=== PATIENT | male | born 1955 | race African-American/Black ===

== ENCOUNTER 2017-02-28 12:01 | Inpatient (IN) | payer OTHER ==
[2017-02-28 15:13] VITALS: BMI 20.1
--- NOTE | 2017-02-28 17:21 | HP ---
COWS - Scale Resting Pulse: 0= [place] 80 or Below Sweatin=Flushed/Facial Moisture Restless Observation: 1= Difficult to Sit Still Pupil Size: 1= Pupils >than Normal Bone or Joint Aches: 2= Severe Diffuse Aches Runny Nose/ Eye Tearin= Runny Nose/Eyes GI Upset > 30mins: 2= Nausea/Diarrhea Tremor Observation: 1= Tremor Tamiment, Not Seen Yawning Observation: 0= None Anxiety or Irritability: 2=Irritable/Anxious Goose Flesh Skin: 0=Smooth Skin COWS Score: 13 Admission ROS BHS - HPI Chief Complaint: I need to stop using heroin and I need help to do so . Allergies/Adverse Reactions: Allergies Allergy/AdvReac Type Severity Reaction Status Date / Time No Known Allergies Allergy Verified 02/28/17 16:55 History of Present Illness: 62 y/o m pt with a h/o heroin dep. seeking detox. Exam Limitations: No Limitations - Ebola screening Have you traveled outside of the country in the last 21 days: No Have you had contact with anyone from an Ebola affected area: No Have you been sick,other than usual withdrawal symptoms: No Do you have a fever: No - Review of Systems Constitutional: Malaise, Changes in sleep EENT: reports: Blurred Vision, Nose Congestion Respiratory: reports: No Symptoms reported Cardiac: reports: No Symptoms Reported GI: reports: Diarrhea, Nausea, Vomiting : reports: No Symptoms Reported Musculoskeletal: reports: Muscle Pain, Other (cramps -legs) Integumentary: reports: No Symptoms Reported Neuro: reports: No Symptoms reported Endocrine: reports: No Symptoms Reported Hematology: reports: No Symptoms Reported Psychiatric: reports: No Sypmtoms Reported Other Systems: Reviewed and Negative Patient History - Patient Medical History Hx Anemia: No Hx Asthma: No Hx Chronic Obstructive Pulmonary Disease (COPD): No Hx Cancer: No Hx Cardiac Disorders: No Hx Congestive Heart Failure: No Hx Hypertension: No Hx Hypercholesterolemia: No Hx Pacemaker: No HX Cerebrovascular Accident: No Hx Seizures: No Hx Dementia: No Hx Diabetes: No Hx Gastrointestinal Disorders: No Hx Genitourinary Disorders: No Hx Sexually Transmitted Disorders: No Hx Renal Disease (ESRD): No Hx Thyroid Disease: No Hx Human Immunodeficiency Virus (HIV): No Hx Hepatitis C: No Hx Depression: No Hx Suicide Attempt: No Hx Bipolar Disorder: No Hx Schizophrenia: No - Patient Surgical History Past Surgical History: No Hx Neurologic Surgery: No Hx Cataract Extraction: No Hx Cardiac Surgery: No Hx Lung Surgery: No Hx Breast Surgery: No Hx Breast Biopsy: No Hx Abdominal Surgery: No Hx Appendectomy: No Hx Cholecystectomy: No Hx Genitourinary Surgery: No Hx Orthopedic Surgery: No - PPD History Previous Implant?: Yes Documented Results: Negative w/proof Date: 07/29/16 - Reproductive History Patient is a Female of Child Bearing Age (11 -55 yrs old): No - Smoking Cessation Smoking history: Current every day smoker Have you smoked in the past 12 months: Yes Aproximately how many cigarettes per day: 12 Cigars Per Day: 0 Hx Chewing Tobacco Use: No Initiated information on smoking cessation: Yes 'Breaking Loose' booklet given: 02/28/17 - Substance & Tx. History Hx Alcohol Use: No Hx Substance Use: Yes Substance Use Type: Heroin Hx Substance Use Treatment: Yes ([facility] ) - Substances Abused Heroin Route: Injection Frequency: Daily Amount used: 10 BAGS Age of first use: 18 Date of Last Use: 02/28/17 Family Disease History - Family Disease History Family Disease History: Heart Disease: Mother (), Other: Father ( ) Admission Physical Exam BHS - Vital Signs Vital Signs: Vital Signs - 24 hr 02/28/17 15:11 Temperature 97.2 F L Pulse Rate 67 Respiratory 18 Rate Blood Pressure 150/105 62 y/o tall thin m pt aox3 in nad ambulating cooperating with exam. - Physical General Appearance: Yes: No Apparent Distress, Appropriately Dressed, Thin, Anxious HEENTM: Yes: EOMI, Hearing grossly Normal, Normocephalic, Normal Voice, KATHERINE, Other (upper and lower dentures in palce) Respiratory: Yes: Chest Non-Tender, Lungs Clear, Normal Breath Sounds, No Respiratory Distress Neck: Yes: Supple, Trachea in good position Breast: Yes: Within Normal Limits Cardiology: Yes: Regular Rhythm, Regular Rate, S1, S2 Abdominal: Yes: Non Tender, Flat, Soft, Increased Bowel Sounds, Hernia (supra umbilical hernia nontender) Genitourinary: Yes: Within Normal Limits Back: Yes: Decreased Range of Motion Musculoskeletal: Yes: Back pain, Muscle Pain Extremities: Yes: Within Normal Limits 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, Fully Oriented, Alert, Motor Strength 5/5, Normal Response Integumentary: Yes: Moist, Track [place] (left arm) Lymphatic: Yes: Within Normal Limits - Diagnostic (1) Nicotine dependence Current Visit: Yes Status: Chronic Qualifiers: Nicotine product type: cigarettes Substance use status: uncomplicated Qualified Code(s): F17.210 - Nicotine dependence, cigarettes, uncomplicated (2) Uncomplicated opioid abuse with intoxication Current Visit: Yes Status: Chronic (3) Weight loss Current Visit: Yes Status: Chronic (4) Umbilical hernia Current Visit: Yes Status: Chronic Qualifiers: Obstruction and gangrene presence: with obstruction but without gangrene Qualified Code(s): K42.0 - Umbilical hernia with obstruction, without gangrene Cleared for Admission BHS - Detox or Rehab [facility] Level of Care: Medically Managed Detox Regimen/Protocol: Methadone [facility] Breath Alcohol Content Breath Alcohol Content: 0 Urine Drug Screen - Results Drug Screen Negative: No Urine Drug Screen Results: OPI-Opiates
[2017-02-28] MEDS ORDERED: MAG HYDROX/AL HYDROX/SIMETH 30 ML UNIT-DOSE CUP PO PRN (17:40)
[2017-02-28] MEDS ORDERED: LOPERAMIDE HCL 2 MG CAPSULE PO PRN (17:40)
[2017-02-28] MEDS ORDERED: hydrOXYzine PAMOATE 25 MG CAPSULE (FP) PO PRN (17:40)
[2017-02-28] MEDS ORDERED: NICOTINE POLACRILEX 4 MG GUM BC PRN (17:40)
[2017-02-28] MEDS ORDERED: guaiFENesin/D-METHORPHAN HB 10 ML UNIT-DOSE CUPS PO PRN (17:40)
[2017-02-28] MEDS ORDERED: P-EPHED 60MG/TRIPROLIDI 2.5MG TABLET PO PRN (17:40)
[2017-02-28] MEDS ORDERED: ACETAMINOPHEN 325 MG TABLET (FP) PO PRN (17:40)
[2017-02-28] MEDS ORDERED: MAGNESIUM HYDROX 2400MG/30ML ORAL SUSPENSION 30 ML CUP PO PRN (17:40)
[2017-02-28] MEDS ORDERED: MAGNESIUM CITRATE 300 ML BOTTLE PO PRN (17:40)
[2017-02-28] MEDS ORDERED: MENTHOL/PHENOL 1 EACH UD MM PRN (17:40)
[2017-02-28] MEDS ORDERED: IBUPROFEN 400 MG TABLET (FP) PO PRN (17:40)
[2017-02-28] MEDS ORDERED: METHADONE HCL 10 MG TABLET (FOR DETOX USE ONLY) PO ONE ×2 (18:15→23:00)
[2017-02-28] MEDS: diazePAM 5 MG TABLET PO PRN (18:51)
[2017-02-28] MEDS ORDERED: cloNIDine HCL 0.1 MG TABLET PO PRN (21:34)
[2017-02-28] MEDS: THIAMINE HCL 100 MG TABLET (FP) PO SCH (22:48)
[2017-02-28] MEDS: diphenhydrAMINE HCL 50 MG CAPSULE PO PRN (22:49)
--- NOTE | 2017-03-01 09:24 | EKG ---
Test Reason : Blood Pressure : / mmHG Vent. Rate : 062 BPM Atrial Rate : 062 BPM P-R Int : 146 ms QRS Dur : 090 ms QT Int : 428 ms P-R-T Axes : 064 045 042 degrees QTc Int : 434 ms NORMAL SINUS RHYTHM VOLTAGE CRITERIA FOR LEFT VENTRICULAR HYPERTROPHY CANNOT RULE OUT SEPTAL INFARCT , AGE UNDETERMINED ABNORMAL ECG NO PREVIOUS ECGS AVAILABLE Confirmed by GHAZALA AUGUSTIN MD ([id number]) on 03/01/2017 9:23:31 AM Referred By: Confirmed By:GHAZALA AUGUSTIN MD
[2017-03-01] MEDS ORDERED: METHADONE HCL 10 MG TABLET (FOR DETOX USE ONLY) PO ONE (10:00)
[2017-03-01 10:14] LABS: URINE APPEARANCE CLEAR; URINE BILIRUBIN NEGATIVE (NEGATIVE); URINE BLOOD NEGATIVE (NEGATIVE); URINE COLOR DKYELLOW; URINE GLUCOSE (UA) NEGATIVE (NEGATIVE); URINE KETONE NEGATIVE (NEGATIVE); URINE LEUK ESTERASE NEGATIVE (NEGATIVE); URINE NITRITE NEGATIVE (NEGATIVE); URINE PROTEIN NEGATIVE (NEGATIVE); URINE UROBILINOGEN 2.0 E.U/dl E.U./dl (0.2-1.0)
[2017-03-01 10:27] LABS: MCH 22.9 pg (25.7-33.7); MCHC 31.7 g/dl (32.0-35.9); MEAN CELL VOLUME 72.2 fl (80-96); MEAN PLT VOLUME 11.2 fl (7.5-11.1); PLATELET COUNT 183 K/MM3 (134-434); WHITE BLOOD COUNT 5.6 K/mm3 (4.0-10.0)
[2017-03-01] MEDS: PRENATAL VITAMINS W/ FOLIC ACID TABLET (FP) PO SCH (10:38)
[2017-03-01] MEDS: diazePAM 5 MG TABLET PO PRN (10:39)
[2017-03-01] MEDS: NICOTINE 21 MG/24 HOURS TOPICAL PATCH TD SCH (10:40)
[2017-03-01 12:21] LABS: ALBUMIN 3.5 g/dl (3.4-5.0); ALK PHOS 80 U/L (45-117); ANION GAP 9 (8-16); BILIRUBIN,TOTAL 0.4 mg/dL (0.2-1.0); CO2 31 mmol/L (21-32); GLUCOSE,RANDOM 82 mg/dL (74-106); SGOT/AST 26 U/L (15-37); SGPT/ALT 16 U/L (12-78); TOT PROT 7.9 g/dl (6.4-8.2)
--- NOTE | 2017-03-01 12:43 | PN ---
BHS COWS - Scale Resting Pulse: 0= [place] 80 or Below Sweatin=Flushed/Facial Moisture Restless Observation: 1= Difficult to Sit Still Pupil Size: 0= Normal to Room Light Bone or Joint Aches: 1= Mild Discomfort Runny Nose/ Eye Tearin= Nasal Congestion GI Upset > 30mins: 2= Nausea/Diarrhea Tremor Observation of Outstretched Hands: 2= Slight Tremor Visible Yawning Observation: 1= 1-2x During Session Anxiety or Irritability: 2=Irritable/Anxious Goose Flesh Skin: 0=Smooth Skin COWS Score: 12 BHS Progress Note (SOAP) Subjective: Sweating,interrupted sleep,restless.tremors,anxiety,muscle aches. Objective: 03/01/17 12:42 Vital Signs - 8 hr 03/01/17 03/01/17 07:52 10:10 Temperature 98.8 F Pulse Rate 57 L 78 Respiratory 18 Rate Blood Pressure 143/88 135/96 Laboratory Tests 02/28/17 03/01/17 03/01/17 08:00 06:00 06:00 WBC 5.6 D RBC 4.82 Hgb 11.0 L Hct 34.8 L MCV 72.2 L MCHC 31.7 L RDW 15.0 Plt Count 183 MPV 11.2 H D Sodium 140 Potassium 4.1 Chloride 100 Carbon Dioxide 31 Anion Gap 9 BUN 10 Creatinine 1.0 D Creat Clearance w eGFR > 60 Random Glucose 82 D Calcium 9.0 Total Bilirubin 0.4 D AST 26 ALT 16 D Alkaline Phosphatase 80 Total Protein 7.9 Albumin 3.5 Urine Color Dkyellow Urine Appearance Clear Urine pH 5.0 D Urine Protein Negative Urine Glucose (UA) Negative Urine Ketones Negative Urine Blood Negative Urine Nitrite Negative Urine Bilirubin Negative Urine Urobilinogen 2.0 e.u/dl Ur Leukocyte Esterase Negative labs noted Assessment: 03/01/17 12:43 Withdrawal sx. Plan: Continue detox
[2017-03-01] MEDS: THIAMINE HCL 100 MG TABLET (FP) PO SCH (22:59)
[2017-03-02] MEDS ORDERED: METHADONE HCL 5 MG TABLET (FOR DETOX USE ONLY) PO ONE (10:00)
[2017-03-02] MEDS: PRENATAL VITAMINS W/ FOLIC ACID TABLET (FP) PO SCH (10:18)
[2017-03-02] MEDS: NICOTINE 21 MG/24 HOURS TOPICAL PATCH TD SCH (10:19)
[2017-03-02] MEDS: diazePAM 5 MG TABLET PO PRN ×3 (10:20→22:16)
--- NOTE | 2017-03-02 11:40 | PN ---
S CIWA - CIWA Score Nausea/Vomitin Muscle Tremors: 3 Anxiety: 3 Agitation: 2 Paroxysmal Sweats: 2 Orientation: 0-Oriented Tacttile Disturbances: 2-Mild Itch/Numbness/Burn Auditory Disturbances: 0-None Visual Disturbances: 1-Very Mild Sensitivity Headache: 2-Mild CIWA-Ar Total Score: 18 S Progress Note (SOAP) Subjective: sweats, shakes, generalized weakness, sleep interruption Objective: 03/02/17 11:40 Vital Signs - 8 hr 03/02/17 03/02/17 06:22 10:19 Temperature 98.9 F 99.1 F Pulse Rate 75 81 Respiratory 18 20 Rate Blood Pressure 145/97 136/93 Laboratory Last Values WBC 5.6 K/mm3 (4.0-10.0) D 03/01/17 06:00 RBC 4.82 M/mm3 (4.00-5.60) 03/01/17 06:00 Hgb 11.0 GM/dL (11.7-16.9) L 03/01/17 06:00 Hct 34.8 % (35.4-49) L 03/01/17 06:00 MCV 72.2 fl (80-96) L 03/01/17 06:00 MCHC 31.7 g/dl (32.0-35.9) L 03/01/17 06:00 RDW 15.0 % (11.9-15.9) 03/01/17 06:00 Plt Count 183 K/MM3 (134-434) 03/01/17 06:00 MPV 11.2 fl (7.5-11.1) H D 03/01/17 06:00 Sodium 140 mmol/L (136-145) 03/01/17 06:00 Potassium 4.1 mmol/L (3.5-5.1) 03/01/17 06:00 Chloride 100 mmol/L (98-107) 03/01/17 06:00 Carbon Dioxide 31 mmol/L (21-32) 03/01/17 06:00 Anion Gap 9 (8-16) 03/01/17 06:00 BUN 10 mg/dL (7-18) 03/01/17 06:00 Creatinine 1.0 mg/dL (0.7-1.3) D 03/01/17 06:00 Creat Clearance w eGFR > 60 (>60) 03/01/17 06:00 Random Glucose 82 mg/dL (74-106) D 03/01/17 06:00 Calcium 9.0 mg/dL (8.5-10.1) 03/01/17 06:00 Total Bilirubin 0.4 mg/dL (0.2-1.0) D 03/01/17 06:00 AST 26 U/L (15-37) 03/01/17 06:00 ALT 16 U/L (12-78) D 03/01/17 06:00 Alkaline Phosphatase 80 U/L (45-117) 03/01/17 06:00 Total Protein 7.9 g/dl (6.4-8.2) 03/01/17 06:00 Albumin 3.5 g/dl (3.4-5.0) 03/01/17 06:00 Urine Color Dkyellow 02/28/17 08:00 Urine Appearance Clear 02/28/17 08:00 Urine pH 5.0 (5.0-8.0) D 02/28/17 08:00 Ur Specific [place] 1.015 (1.005-1.025) 02/28/17 08:00 Urine Protein Negative (NEGATIVE) 02/28/17 08:00 Urine Glucose (UA) Negative (NEGATIVE) 02/28/17 08:00 Urine Ketones Negative (NEGATIVE) 02/28/17 08:00 Urine Blood Negative (NEGATIVE) 02/28/17 08:00 Urine Nitrite Negative (NEGATIVE) 02/28/17 08:00 Urine Bilirubin Negative (NEGATIVE) 02/28/17 08:00 Urine Urobilinogen 2.0 e.u/dl E.U./dl (0.2-1.0) 02/28/17 08:00 Ur Leukocyte Esterase Negative (NEGATIVE) 02/28/17 08:00 RPR Titer Nonreactive (NONREACTIVE) 03/01/17 06:00 labs noted Assessment: 03/02/17 11:40 withdrawal sx Plan: continue detox
[2017-03-02] MEDS: diphenhydrAMINE HCL 50 MG CAPSULE PO PRN (22:16)
[2017-03-02] MEDS: THIAMINE HCL 100 MG TABLET (FP) PO SCH (22:16)
--- NOTE | 2017-03-03 03:06 | PN ---
[facility] Progress Note Note: MD'S NOTE: CALLED AT 2:45AM TO SEE THE PT. WHO ACCIDENTALLY FELL ON FLOOR SUB: DENIES ANY PAIN, INJURY OR HITTING THE HEAD OBJ: THE PT. IS RESTING COMFORTABLY AND MUNOZ X 3 AND NOT IN DISTRESS V/S: 97.4P-82-81-165/99 L/E: NO VISIBLE INJURIES OR FRACTURES NOTED AT THIS TIME IMPRESSION: ACCIDENTAL FALL - APPARENTLY WITHOUT ANY INJURIES PLANS: FALL PROTOCOL #2 OBSERVATION PROVIDER: GABBY CHURCH MD
[2017-03-03] MEDS ORDERED: METHADONE HCL 5 MG TABLET (FOR DETOX USE ONLY) PO ONE (10:00)
[2017-03-03] MEDS: PRENATAL VITAMINS W/ FOLIC ACID TABLET (FP) PO SCH (10:50)
[2017-03-03] MEDS: NICOTINE 21 MG/24 HOURS TOPICAL PATCH TD SCH (10:50)
[2017-03-03] MEDS: diazePAM 5 MG TABLET PO PRN (13:19)
--- NOTE | 2017-03-03 13:20 | PN ---
BHS Progress Note (SOAP) Subjective: Anxious, chills, interrupted sleep, sweating Objective: 03/03/17 13:18 Last Vital Signs Temp Pulse Resp BP Pulse Ox 97.5 F L 92 H 18 104/67 03/03/17 10:43 03/03/17 10:43 03/03/17 10:43 03/03/17 10:43 Laboratory Tests 02/28/17 03/01/17 03/01/17 08:00 06:00 06:00 WBC 5.6 D RBC 4.82 Hgb 11.0 L Hct 34.8 L MCV 72.2 L MCHC 31.7 L RDW 15.0 Plt Count 183 MPV 11.2 H D Sodium 140 Potassium 4.1 Chloride 100 Carbon Dioxide 31 Anion Gap 9 BUN 10 Creatinine 1.0 D Creat Clearance w eGFR > 60 Random Glucose 82 D Calcium 9.0 Total Bilirubin 0.4 D AST 26 ALT 16 D Alkaline Phosphatase 80 Total Protein 7.9 Albumin 3.5 Urine Color Dkyellow Urine Appearance Clear Urine pH 5.0 D Ur Specific [place] [employer] 1.015 Urine Protein Negative Urine Glucose (UA) Negative Urine Ketones Negative Urine Blood Negative Urine Nitrite Negative Urine Bilirubin Negative Urine Urobilinogen 2.0 e.u/dl Ur Leukocyte Esterase Negative RPR Titer 03/01/17 06:00 WBC RBC Hgb Hct MCV MCHC RDW Plt Count MPV Sodium Potassium Chloride Carbon Dioxide Anion Gap BUN Creatinine Creat Clearance w eGFR Random Glucose Calcium Total Bilirubin AST ALT Alkaline Phosphatase Total Protein Albumin Urine Color Urine Appearance Urine pH Ur Specific [employer] Urine Protein Urine Glucose (UA) Urine Ketones Urine Blood Urine Nitrite Urine Bilirubin Urine Urobilinogen Ur Leukocyte Esterase RPR Titer Nonreactive Labs noted Assessment: 03/03/17 13:19 Withdrawal symptoms Plan: Continue detox, encouraged to drink lots of water (at least 8 cups/day)
[2017-03-03] MEDS: THIAMINE HCL 100 MG TABLET (FP) PO SCH (22:25)
[2017-03-04] MEDS ORDERED: METHADONE HCL 10 MG TABLET (FOR DETOX USE ONLY) PO ONE (10:00)
[2017-03-04] MEDS: PRENATAL VITAMINS W/ FOLIC ACID TABLET (FP) PO SCH (10:11)
[2017-03-04] MEDS: NICOTINE 21 MG/24 HOURS TOPICAL PATCH TD SCH (10:12)
--- NOTE | 2017-03-04 13:17 | PN ---
BHS Progress Note (SOAP) Subjective: Anxious, sweating, interrupted sleep Objective: 03/04/17 13:16 Last Vital Signs Temp Pulse Resp BP Pulse Ox 97.0 F L 71 18 156/93 03/04/17 09:18 03/04/17 09:18 03/04/17 09:18 03/04/17 09:18 Laboratory Tests 02/28/17 03/01/17 03/01/17 08:00 06:00 06:00 WBC 5.6 D RBC 4.82 Hgb 11.0 L Hct 34.8 L MCV 72.2 L MCHC 31.7 L RDW 15.0 Plt Count 183 MPV 11.2 H D Sodium 140 Potassium 4.1 Chloride 100 Carbon Dioxide 31 Anion Gap 9 BUN 10 Creatinine 1.0 D Creat Clearance w eGFR > 60 Random Glucose 82 D Calcium 9.0 Total Bilirubin 0.4 D AST 26 ALT 16 D Alkaline Phosphatase 80 Total Protein 7.9 Albumin 3.5 Urine Color Dkyellow Urine Appearance Clear Urine pH 5.0 D Ur Specific [place] 1.015 Urine Protein Negative Urine Glucose (UA) Negative Urine Ketones Negative Urine Blood Negative Urine Nitrite Negative Urine Bilirubin Negative Urine Urobilinogen 2.0 e.u/dl Ur Leukocyte Esterase Negative RPR Titer 03/01/17 06:00 WBC RBC Hgb Hct MCV MCHC RDW Plt Count MPV Sodium Potassium Chloride Carbon Dioxide Anion Gap BUN Creatinine Creat Clearance w eGFR Random Glucose Calcium Total Bilirubin AST ALT Alkaline Phosphatase Total Protein Albumin Urine Color Urine Appearance Urine pH Ur Specific [place] Urine Protein Urine Glucose (UA) Urine Ketones Urine Blood Urine Nitrite Urine Bilirubin Urine Urobilinogen Ur Leukocyte Esterase RPR Titer Nonreactive Labs noted Assessment: 03/04/17 13:16 Withdrawal symptoms Plan: Continue detox Ambien 10mg PO x 1 dose tonight (patient request)
[2017-03-04] MEDS ORDERED: ZOLPIDEM TARTRATE 10 MG TABLET (PARK CARE ONLY) PO ONE (22:00)
[2017-03-04] MEDS: THIAMINE HCL 100 MG TABLET (FP) PO SCH (22:14)
[2017-03-05] MEDS ORDERED: METHADONE HCL 5 MG TABLET (FOR DETOX USE ONLY) PO ONE (06:00)
[2017-03-05 06:14] VITALS: BP 155/97; PULSE 57; TEMP 97.2
--- NOTE | 2017-03-05 08:32 | DS ---
[facility] Detox Discharge Summary Admission Date: 02/28/17 Discharge Date: 03/05/17 - History Present History: Opioid Dependence Pertinent Past History: Umbilical hernia - Physical Exam Results Vital Signs: Vital Signs Temperature 97.2 F L 03/05/17 06:14 Pulse Rate 57 L 03/05/17 06:14 Respiratory Rate 18 03/05/17 06:14 Blood Pressure 155/97 03/05/17 06:14 O2 Sat by Pulse Oximetry (%) Pertinent Admission Physical Exam Findings: Withdrawal sx. Laboratory Last Values WBC 5.6 K/mm3 (4.0-10.0) D 03/01/17 06:00 RBC 4.82 M/mm3 (4.00-5.60) 03/01/17 06:00 Hgb 11.0 GM/dL (11.7-16.9) L 03/01/17 06:00 Hct 34.8 % (35.4-49) L 03/01/17 06:00 MCV 72.2 fl (80-96) L 03/01/17 06:00 MCHC 31.7 g/dl (32.0-35.9) L 03/01/17 06:00 RDW 15.0 % (11.9-15.9) 03/01/17 06:00 Plt Count 183 K/MM3 (134-434) 03/01/17 06:00 MPV 11.2 fl (7.5-11.1) H D 03/01/17 06:00 Sodium 140 mmol/L (136-145) 03/01/17 06:00 Potassium 4.1 mmol/L (3.5-5.1) 03/01/17 06:00 Chloride 100 mmol/L (98-107) 03/01/17 06:00 Carbon Dioxide 31 mmol/L (21-32) 03/01/17 06:00 Anion Gap 9 (8-16) 03/01/17 06:00 BUN 10 mg/dL (7-18) 03/01/17 06:00 Creatinine 1.0 mg/dL (0.7-1.3) D 03/01/17 06:00 Creat Clearance w eGFR > 60 (>60) 03/01/17 06:00 Random Glucose 82 mg/dL (74-106) D 03/01/17 06:00 Calcium 9.0 mg/dL (8.5-10.1) 03/01/17 06:00 Total Bilirubin 0.4 mg/dL (0.2-1.0) D 03/01/17 06:00 AST 26 U/L (15-37) 03/01/17 06:00 ALT 16 U/L (12-78) D 03/01/17 06:00 Alkaline Phosphatase 80 U/L (45-117) 03/01/17 06:00 Total Protein 7.9 g/dl (6.4-8.2) 03/01/17 06:00 Albumin 3.5 g/dl (3.4-5.0) 03/01/17 06:00 Urine Color Dkyellow 02/28/17 08:00 Urine Appearance Clear 02/28/17 08:00 Urine pH 5.0 (5.0-8.0) D 02/28/17 08:00 Ur Specific [place] 1.015 (1.005-1.025) 02/28/17 08:00 Urine Protein Negative (NEGATIVE) 02/28/17 08:00 Urine Glucose (UA) Negative (NEGATIVE) 02/28/17 08:00 Urine Ketones Negative (NEGATIVE) 02/28/17 08:00 Urine Blood Negative (NEGATIVE) 02/28/17 08:00 Urine Nitrite Negative (NEGATIVE) 02/28/17 08:00 Urine Bilirubin Negative (NEGATIVE) 02/28/17 08:00 Urine Urobilinogen 2.0 e.u/dl E.U./dl (0.2-1.0) 02/28/17 08:00 Ur Leukocyte Esterase Negative (NEGATIVE) 02/28/17 08:00 RPR Titer Nonreactive (NONREACTIVE) 03/01/17 06:00 labs noted - Treatment Hospital Course: Detox Protocol Followed, Detoxed Safely, Responded well, Discharged Condition Good, Rehab Referral Accepted - Medication Discharge Medications: Ambulatory Orders NK [No Known Home Medication] 07/27/16 - Diagnosis (1) Opioid dependence with withdrawal Current Visit: Yes Status: Acute (2) Nicotine dependence Current Visit: Yes Status: Chronic Qualifiers: Nicotine product type: cigarettes Substance use status: uncomplicated Qualified Code(s): F17.210 - Nicotine dependence, cigarettes, uncomplicated (3) Umbilical hernia Current Visit: Yes Status: Chronic Qualifiers: Obstruction and gangrene presence: with obstruction but without gangrene Qualified Code(s): K42.0 - Umbilical hernia with obstruction, without gangrene (4) Weight loss Current Visit: Yes Status: Chronic - AMA Did Patient Leave Against Medical Advice: No
== END 2017-03-05 09:45 | disposition home or self-care (01) | DRG 773 ==
LOC: YASAS 12:01 → Y3N 17:20
PROVIDERS: ADMIT Internal Medicine; ATTEND Internal Medicine
PROC: HZ2ZZZZ Detoxification Services for Substance Abuse Treatment (ICD-10-PCS; principal; 2017-02-28)
DX: F11.23 Opioid dependence with withdrawal (principal); F17.210 Nicotine dependence, cigarettes, uncomplicated; K42.0 Umbilical hernia with obstruction, without gangrene; Z87.898 Personal history of other specified conditions; W18.30XA Fall on same level, unspecified, initial encounter; Y93.9 Activity, unspecified; Y92.239 Unspecified place in hospital as the place of occurrence of the external cause
CPT/HCPCS: 36415; 80053; 81003; 85027; 86593; 93005; 93010